=== PATIENT | male | born 1990 | race African-American/Black ===

== ENCOUNTER 2022-10-27 17:14 | Emergency (ER) | payer SELFPAY ==
[~2022-10-27] VITALS: Ht 180.3 cm; Wt 86.0 kg
[2022-10-27] MEDS ORDERED: ACETAMINOPHEN 325MG TABLET PO ONE (18:15)
[2022-10-27] MEDS ORDERED: METHOCARBAMOL 500MG TABLET PO ONE (19:15)
[2022-10-27] MEDS ORDERED: METH-653 MT (19:18)
[2022-10-27 19:34] VITALS: BP 127/87
== END 2022-10-27 19:35 | disposition home or self-care (01) ==
LOC: ER 17:14
DX: S43.402A Unspecified sprain of left shoulder joint, initial encounter (principal); M25.531 Pain in right wrist; V49.9XXA Car occupant (driver) (passenger) injured in unspecified traffic accident, initial encounter; Y93.89 Activity, other specified; Y92.89 Other specified places as the place of occurrence of the external cause; Y99.8 Other external cause status
CPT/HCPCS: 73030; 73110; 99284